=== PATIENT | female | born 1995 | race Caucasian/White ===

== ENCOUNTER → 2017-01-16 | Outpatient (CLI) | payer OTHER ==
[2017-01-17 14:16] LABS: SJOGREN'S ANTI SS-A <0.2 AI (0.0-0.9); SJOGREN'S ANTI SS-B <0.2 AI (0.0-0.9)
== END ==
LOC: M LAB 13:08
PROVIDERS: ATTEND Physician Assistant
DX: E07.89 Other specified disorders of thyroid (principal)

== ENCOUNTER → 2017-02-28 | Outpatient (CLI) | payer OTHER ==
[2017-02-28 09:44] LABS: CORTISOL AM < 0.5 UG/DL (4.3-22.4)
[2017-03-01 10:40] LABS: THYROID PEROXIDASE ANTIBODY < 28.0 U/ML (<60.0)
== END ==
LOC: M LAB 07:02
PROVIDERS: ATTEND Physician Assistant
DX: E66.01 Morbid (severe) obesity due to excess calories (principal); E04.1 Nontoxic single thyroid nodule

== ENCOUNTER 2017-10-27 11:34 | Emergency (ER) | payer OTHER ==
[~2017-10-27] VITALS: Ht 172.7 cm; Wt 113.6 kg
[2017-10-27 11:40] VITALS: BP 122/70
[2017-10-27] MEDS ORDERED: PROAAER10 INH (11:44)
[2017-10-27] MEDS ORDERED: LEXA5TAB13 PO (11:44)
[2017-10-27] MEDS ORDERED: ULTR50TA8 PO (12:13)
--- NOTE | 2017-10-27 12:40 | REP ---
Right ankle four views : There is no fracture or dislocation. Mineralization and joint spaces are normal. There are no calcifications or foreign bodies. Impression: Negative right ankle . Signed by Brent Barlow MD 10/27/2017 12:32 P
== END 2017-10-27 12:22 | disposition home or self-care (01) ==
LOC: M ED 11:34
DX: S93.411A Sprain of calcaneofibular ligament of right ankle, initial encounter (principal); W00.0XXA Fall on same level due to ice and snow, initial encounter; X50.9XXA Other and unspecified overexertion or strenuous movements or postures, initial encounter; Y92.410 Unspecified street and highway as the place of occurrence of the external cause; Y93.89 Activity, other specified; Y99.8 Other external cause status; J45.909 Unspecified asthma, uncomplicated; F99 Mental disorder, not otherwise specified; E66.9 Obesity, unspecified; Z79.899 Other long term (current) drug therapy